=== PATIENT | female | born 1975 | race Caucasian/White ===

== ENCOUNTER 2019-07-29 10:23 | Emergency (ER) | payer SELFPAY ==
--- NOTE | 2019-07-29 11:02 | RAD ---
Left wrist 3 views: 07/29/2019 COMPARISON: None available HISTORY: Fall, trauma, pain FINDINGS: No fracture or dislocation. No radiopaque foreign body or subcutaneous gas. If symptoms per sist, follow-up in 7-10 days with dedicated scaphoid views advised. IMPRESSION: No acute findings.
--- NOTE | 2019-07-29 11:09 | RAD ---
Exam:3 views left hand. HISTORY: Pain. Injury. Fall. COMPARISON: None FINDINGS: Preserved joint spaces. No erosive or destructive changes. No fracture, cortical irregulari ty or periosteal reaction. IMPRESSION: No posttraumatic change.
== END 2019-07-29 11:25 | disposition home or self-care (01) ==
LOC: BURERS 10:23
DX: S63.602A Unspecified sprain of left thumb, initial encounter (principal); I10 Essential (primary) hypertension; F41.9 Anxiety disorder, unspecified; F32.9 Major depressive disorder, single episode, unspecified; F17.210 Nicotine dependence, cigarettes, uncomplicated; Z79.899 Other long term (current) drug therapy; X50.1XXA Overexertion from prolonged static or awkward postures, initial encounter
CPT/HCPCS: 29125